=== PATIENT | male | born 1995 | race Caucasian/White ===

== ENCOUNTER 2019-05-30 07:04 | Emergency (ER) | payer BC ==
[~2019-05-30] VITALS: Ht 167.6 cm; Wt 67.6 kg
[2019-05-30 07:18] VITALS: Ht 167.6 cm; Wt 67.6 kg
[2019-05-30 08:24] VITALS: BP 102/70
== END 2019-05-30 08:24 | disposition home or self-care (01) ==
LOC: ED 07:04
DX: L02.31 Cutaneous abscess of buttock (principal)
CPT/HCPCS: 82962; 90715; J2001

== ENCOUNTER 2019-06-01 15:30 | Emergency (ER) | payer BC ==
[2019-06-01 15:36] VITALS: Ht 167.6 cm
[2019-06-01 17:03] VITALS: BP 112/65
== END 2019-06-01 17:03 | disposition home or self-care (01) ==
LOC: ED 15:30
DX: L02.31 Cutaneous abscess of buttock (principal)